=== PATIENT | female | born 1990 | race Caucasian/White ===

== ENCOUNTER 2019-11-10 20:32 | Emergency (ER) | payer BC ==
[~2019-11-10] VITALS: Ht 165.1 cm; Wt 61.2 kg
[2019-11-10 20:46] VITALS: BP 139/78
--- NOTE | 2019-11-10 20:59 | Emergency Room Report ---
History of Present Illness General Chief Complaint: Female Urogenital Problems Source: Patient (Sim De Leon MD) Present Illness HPI Disclaimer: Please note that this report is being documented using DRAGON technology. This can lead to erroneous entry secondary to incorrect interpretation by the dictating instrument. HPI: 29-year-old G1, P0 female at estimated 6 weeks gestation presents for evaluation of vaginal spotting and cramping. Patient reports her LMP was 6 weeks ago and states she had a positive home test 2 weeks ago. She reports intermittent cramping for the past 2 weeks though today had some spotting after using the bathroom. Denies krunal bleeding. Denies nausea, vomiting, fever, chills. No further spotting since this incident. Denies lightheadedness, chest pain, shortness of breath or other symptoms. She is taking her vitamins. Not currently medicated for Nishant's thyroiditis/thyroid levels have been stable. PMH: Nishant's thyroiditis, Arnold-Chiari status post surgery PSH: Arnold-Chiari decompression Allergies: Reviewed Social Hx: Reviewed (Sim De Leon MD) Allergies: Coded Allergies: No Known Allergies (Unverified , 11/10/19) COVID-19 Screening Contact w/high risk pt: No Experienced COVID-19 symptoms?: No COVID-19 Testing performed ASPHALT PAVER: No (Sim De Leon MD) Patient History Now: Yes : 1 Para: 0 (Sim De Leon MD) Nursing Documentation-PMH Past Medical History: No Stated History (Sim De Leon MD) Review of Systems All Other Systems: negative except mentioned in HPI (Sim De Leon MD) Physical Exam Vital Signs Date Time Temp Pulse Resp B/P (MAP) Pulse Ox O2 Delivery O2 Flow Rate FiO2 11/10/19 20:37 98.4 86 18 146/89 (108) 99 Room Air General: Awake and alert, no acute distress HEENT: NC/AT. EOMI. Cardiovascular: RRR. S1 and S2 normal. No murmur appreciated Resp: Normal work of breathing. No cough, wheezing or crackles appreciated Abdomen: Abdomen is soft, nondistended. Nontender Skin: Intact. No abrasions, laceration or rash over the exposed skin MSK: Normal tone and bulk. Moving all extremities. No obvious deformity. Neuro: Awake and alert. Mentating appropriately. (Sim De Leon MD) Medical Decision Making Diagnostic Impression: Primary Impression: Spontaneous in first trimester ER Course Is a 29-year-old G1, P0 female estimated 6 weeks gestation by LMP presenting for evaluation of lower abdominal cramping and vaginal spotting. Concern for threatened , inevitable , placenta previa among others. Will order labs and ultrasound. 2200: Labs have returned largely within normal limits. hCG is 15. This would be low as compared to expected for 6 weeks gestation. Concern for miscarriage. Ultrasound is pending. Patient's blood type is A+ and does not require RhoGam. Patient signed out to oncoming physician pending ultrasound results though anticipate ultimate disposition will be home with OB follow-up. Laboratory Tests Test 11/10/19 20:47 11/10/19 20:50 Urine Color Pale yellow Urine Appearance Clear Urine pH 6 (4.5-8.0) Urine Specific Delia 1.005 (1.005-1.035) Urine Protein Negative (NEGATIVE) Urine Glucose (UA) Negative (NEGATIVE) Urine Ketones Negative (NEGATIVE) Urine Blood Negative (NEGATIVE) Urine Nitrite Negative (NEGATIVE) Urine Bilirubin Negative (NEGATIVE) Urine Urobilinogen Normal MG/DL (0.0-1.0) Urine Leukocyte Esterase Negative (NEGATIVE) White Blood Count 9.6 K/UL (4.8-10.8) Red Blood Count 4.37 M/UL (4.20-5.40) Hemoglobin 14.4 G/DL (12.0-16.0) Hematocrit 43.0 % (37.0-47.0) Mean Corpuscular Volume 98 FL (80-99) Mean Corpuscular Hemoglobin 32.8 PG (27.0-31.0) H Mean Corpuscular Hemoglobin Concent 33.4 G/DL (32.0-36.0) Red Cell Distribution Width 11.2 % (11.6-14.8) L Platelet Count 301 K/UL (150-450) Mean Platelet Volume 7.3 FL (6.5-10.1) Neutrophils (%) (Auto) 69.1 % (45.0-75.0) Lymphocytes (%) (Auto) 19.2 % (20.0-45.0) L Monocytes (%) (Auto) 7.6 % (1.0-10.0) Eosinophils (%) (Auto) 3.2 % (0.0-3.0) H Basophils (%) (Auto) 0.9 % (0.0-2.0) Prothrombin Time 10.2 SEC (9.30-11.50) Prothrombin Time INR 0.9 (0.9-1.1) Activated Partial Thromboplast Time 25 SEC (23-33) Sodium Level 137 MMOL/L (136-145) Potassium Level 3.3 MMOL/L (3.5-5.1) L Chloride Level 102 MMOL/L (98-107) Carbon Dioxide Level 26 MMOL/L (21-32) Anion Gap 9 mmol/L (5-15) Blood Urea Nitrogen 6 mg/dL (7-18) L Creatinine 0.9 MG/DL (0.55-1.30) Estimated Glomerular Filtration Rate > 60 mL/min (>60) Glucose Level 139 MG/DL (74-106) H Calcium Level 9.2 MG/DL (8.5-10.1) Total Bilirubin 0.1 MG/DL (0.2-1.0) L Aspartate Amino Transferase (AST) 16 U/L (15-37) Alanine Aminotransferase (ALT) 26 U/L (12-78) Alkaline Phosphatase 77 U/L (46-116) Total Protein 8.2 G/DL (6.4-8.2) Albumin 4.3 G/DL (3.4-5.0) Globulin 3.9 g/dL Albumin/Globulin Ratio 1.1 (1.0-2.7) Lipase 155 U/L (73-393) Human Chorionic Gonadotropin, Quant 15 mIU/mL (1-6) H (Sim De Leon MD) ER Course This patient was signed out to me. She presents with bleeding in first trimester. She was heavy bleeding. Her beta hCG was only 15. Ultrasound was ordered. Ultrasound here showed no ectopic. No IUP. She is very thickened endometrium at 12 mm. This probably presents spontaneous miscarriage. Unlikely to be a very early . Will discharge home. (Chang Mirza MD) CT/MRI/US Diagnostic Results CT/MRI/US Diagnostic Results : Imaging Test Ordered: Vaginal ultrasound Impression Read by radiologist. No ectopic. No IUP. Thickened endometrium. (Chang Mirza MD) Last Vital Signs Date Time Temp Pulse Resp B/P (MAP) Pulse Ox O2 Delivery O2 Flow Rate FiO2 11/10/19 20:46 98.4 79 16 139/78 100 Room Air (Sim De Leon MD) Status: improved (Chang Mirza MD) Disposition: HOME, SELF-CARE Condition: Stable Scripts Ibuprofen* (MOTRIN*) 600 Mg Tablet 600 MG ORAL Q6H PRN for For Pain, #30 TAB 0 Refills Prov: Chang Mirza MD 11/10/19 Additional Instructions: Follow-up with your [employer] in 5 to 7 days. You may need a repeat blood test on your level. Return if symptoms worsen. Sim De Leon MD Nov 10, 2019 20:59 Chang Mirza MD Nov 10, 2019 23:25
[2019-11-10 21:07] LABS: APPEARANCE,URINE CLEAR; BILIRUBIN, URINE NEGATIVE (NEGATIVE); COLOR,URINE PALE YELLOW; GLUCOSE, URINE (UA) NEGATIVE (NEGATIVE); KETONES,URINE NEGATIVE (NEGATIVE); LEUKOCYTE ESTERASE ,URINE NEGATIVE (NEGATIVE); NITRITE,URINE NEGATIVE (NEGATIVE); PH,URINE 6 (4.5-8.0); PROTEIN,URINE NEGATIVE (NEGATIVE); UROBILINOGEN,URINE NORMAL MG/DL (0.0-1.0)
[2019-11-10 21:17] LABS: BASOPHILS % (AUTO) 0.9 % (0.0-2.0); EOSINOPHILS % (AUTO) 3.2 % (0.0-3.0); HEMOGLOBIN 14.4 G/DL (12.0-16.0); LYMPHOCYTES % (AUTO) 19.2 % (20.0-45.0); MEAN CORPUSCULAR VOLUME 98 FL (80-99); MONOCYTES % (AUTO) 7.6 % (1.0-10.0); NEUTROPHILS % (AUTO) 69.1 % (45.0-75.0); PLATELET COUNT 301 K/UL (150-450); RED BLOOD COUNT 4.37 M/UL (4.20-5.40); RED CELL DISTRIBUTION WIDTH 11.2 % (11.6-14.8); WHITE BLOOD COUNT 9.6 K/UL (4.8-10.8)
[2019-11-10 21:21] LABS: ANION GAP 9 mmol/L (5-15); BLOOD UREA NITROGEN 6 mg/dL (7-18); CALCIUM 9.2 MG/DL (8.5-10.1); CARBON DIOXIDE 26 MMOL/L (21-32); CHLORIDE 102 MMOL/L (98-107); CREATININE 0.9 MG/DL (0.55-1.30); POTASSIUM 3.3 MMOL/L (3.5-5.1); SODIUM 137 MMOL/L (136-145)
[2019-11-10 21:24] LABS: INR 0.9 (0.9-1.1)
[2019-11-10 21:25] LABS: ALBUMIN 4.3 G/DL (3.4-5.0); ALBUMIN/GLOBULIN RATIO 1.1 (1.0-2.7); ALKALINE PHOSPHATASE 77 U/L (46-116); ASPARTATE AMINO TRANSFERASE 16 U/L (15-37); BILIRUBIN,TOTAL 0.1 MG/DL (0.2-1.0)
[2019-11-10 21:33] LABS: ALANINE AMINOTRANSFERASE 26 U/L (12-78)
[2019-11-10] MEDS ORDERED: IBUPROFEN600 M1 ORAL (23:21)
[2019-11-10 23:30] VITALS: BP 135/75
--- NOTE | 2019-11-10 23:47 | Diagnostic Imaging Report ---
EXAM: US First Trimester , Transabdominal and Transvaginal CLINICAL HISTORY: ABD PAIN TECHNIQUE: Real-time transabdominal and transvaginal obstetrical ultrasound of the maternal pelvis and a first trimester with image documentation. Transvaginal imaging was used for better evaluation of the fetus and adnexa. COMPARISON: No relevant prior studies available. FINDINGS: Beta-hCG level: Reportedly, this patient has a beta hCG of 15. Gestation: No intrauterine gestational sac seen, empty uterus with prominent endometrial stripe. Placenta/amniotic fluid: Cannot be adequately evaluated due to the early gestational age. Uterus/cervix: Uterus 7.6 x 4 x 3.2 cm No myometrial mass. Ovaries: Right ovary 3.4 cm Left ovary 3.4 cm No mass. Free fluid: No peritoneal free fluid. Vasculature: Endometrial stripe 1.3 cm with mild vascularity. IMPRESSION: 1. Reportedly, this patient has a beta hCG of 15. 2. No intrauterine gestational sac seen, empty uterus with prominent endometrial stripe. 3. This could represent early failure, potentially normal early depending on beta-hCG level, or ectopic . 4. Endometrial findings could represent retained products of conception in the proper context or potentially endometrial polyp. 5. No clear acute abnormality identified. 6. No peritoneal free fluid. 7. Recommend close clinical, serologic, and imaging follow-up as clinically directed.
== END 2019-11-10 23:30 | disposition home or self-care (01) ==
LOC: EMR 21:00
DX: O03.9 Complete or unspecified spontaneous abortion without complication (principal); E06.3 Autoimmune thyroiditis; Q07.00 Arnold-Chiari syndrome without spina bifida or hydrocephalus
CPT/HCPCS: 36415; 76801; 76817; 80053; 81003; 83690; 84702; 85025; 85610; 85730; 86850; 86900; 86901; 99284